=== PATIENT | male | born 1960 | race Caucasian/White ===

== ENCOUNTER 2025-04-20 07:15 | Day surgery (SDC) | payer BC ==
[~2025-04-20 07:15] MED LIST: Dexamethasone 4 MG/ML 5 ML MDV ONE; EPINEPHrine 1 MG/ML SDV ONE; Ondansetron 4 MG/2 ML SDV ONE; Ropivacaine 0.5% 5 MG/ML 30 ML SDV ONE; Sodium Chloride 0.9% 10 ML Syringe FLUSH PRN; Sodium Chloride 0.9% 10 ML Syringe FLUSH SCH; dexmedeTOMIDine HCl 200 MCG/2 ML SDV ONE; fentaNYL 100 MCG/2 ML SDV ONE; propofoL 500 MG/50 ML 50 ML ONE
[2025-04-20] MEDS: Lactated Ringers 1,000 ML IV SCH (07:20)
[2025-04-20] MEDS: oxyCODONE ER 10 MG TAB.ER PO SCH (07:32)
[2025-04-20] MEDS ORDERED: ePHEDrine 50 MG/ML SDV ONE (08:44)
[2025-04-20] MEDS ORDERED: Lactated Ringers 1,000 ML ONE (09:01)
[2025-04-20] MEDS ORDERED: propofoL 500 MG/50 ML 50 ML ONE (09:18)
[2025-04-20] MEDS: Morphine 8 MG, EPINEPHrine 0.3 MG, Cefuroxime 750 MG, Ketorolac 30 MG, Sodium Chloride ... PRN (09:34)
[2025-04-20] MEDS ORDERED: fentaNYL 100 MCG/2 ML SDV IVPUSH PRN (10:07)
[2025-04-20] MEDS ORDERED: Ondansetron 4 MG/2 ML SDV IVPUSH PRN (10:07)
== END 2025-04-20 15:10 | disposition home or self-care (01) ==
LOC: JD.SDS 07:15
PROVIDERS: ATTEND Orthopaedic Surgery
DX: M16.11 Unilateral primary osteoarthritis, right hip (principal); Z79.82 Long term (current) use of aspirin; Z79.899 Other long term (current) drug therapy
CPT/HCPCS: 0055T; 27130; 73501; 97116; 97161; 97530; A9270; C1713; C1776; J0169; J0690; J0697; J1100; J1885; J2272; J2405; J2704; J3010; J3373; J7120; 01214; J2795; J3490